=== PATIENT | male | born 1955 | race Caucasian/White ===

== ENCOUNTER 2020-09-21 07:55 | Outpatient (REF) | payer MEDICARE, SELFPAY ==
--- NOTE | 2020-09-21 08:02 | XR_ITS ---
EXAMINATION: XR CERVICAL SPINE CLINICAL INFORMATION: Cervical spondylosis, follow-up. COMPARISON: Cervical spine MRI dated 05/30/2012 cervical spine radiographs dated 07/18/2009. TECHNIQUE: 6 views of the cervical spine, inclusive of flexion and extension views, were obtained. FINDINGS: At C3-4 there is moderate degenerative disc disease and grade 1 anterolisthesis with approximate 3 mm displacement. Mild grade 1 retrolisthesis is also seen at C5-6 with 2 mm displacement. Mild bilateral neural foraminal narrowing is seen at both of these levels, left greater than right. The vertebral bodies are intact. Facet joints are unremarkable. The odontoid process is intact. The atlantoaxial joints are unremarkable. A dental prosthesis overlies this region. XR/XR cervical spine min 6V IMPRESSION: 1. C3-4 moderate degenerative disc disease, grade 1 retrolisthesis and mild bilateral neural foraminal narrowing represents interval increase from previous studies. 2. C5-6 mild grade 1 retrolisthesis and mild neural foraminal narrowing represents interval increase from the previous study.
== END 2020-09-21 07:56 | disposition home or self-care (01) ==
LOC: HO.XRAY 07:55
PROVIDERS: PCP Internal Medicine; Visit Provider Psychiatry & Neurology Neurology
DX: M47.812 Spondylosis without myelopathy or radiculopathy, cervical region (principal)
CPT/HCPCS: 72052

== ENCOUNTER 2022-01-08 08:25 | Outpatient (REF) | payer MEDICARE, SELFPAY ==
[2022-01-08 08:37] LABS: MANUAL DIFF FLAG NO
[2022-01-08 09:20] LABS: Basophils Absolute Auto 0.1 X10*3/uL (0.0-0.2); Basophils Percent Auto 0.8 % (0-2); Eosinophils Absolute Auto 0.1 X10*3/uL (0.0-0.4); Eosinophils Percent Auto 1.7 % (0-4); Hematocrit 46.6 % (42.0-52.0); Hemoglobin 15.7 g/dl (14.0-18.0); Imm Gran Abs Auto 0.02 X10*3/uL (0.00-0.03); Imm Gran Pct Auto 0.3 % (0.0-0.4); Lymphocytes Absolute Auto 1.8 X10*3/uL (1.2-4.9); Lymphocytes Percent Auto 28.1 % (20-40); Mean Corpuscular HGB Conc 33.7 g/dl (31.0-36.0); Mean Corpuscular Hemoglobin 30.5 pg (27.0-33.0); Mean Corpuscular Volume 90.5 fL (80.0-98.0); Mean Platelet Volume 9.3 fL (9.4-12.4); Monocytes Absolute Auto 0.4 X10*3/uL (0.1-1.2); Monocytes Percent Auto 6.7 % (2-11); Neutrophils Absolute Auto 3.9 x10*3/uL (2.0-8.3); Neutrophils Percent Auto 62.4 % (45-73); Platelet Count 200 X10*3/uL (160-400); Red Blood Count 5.15 X10*6/uL (4.60-5.80); Red Cell Distribution Width 13.2 % (11.0-16.0); White Blood Count 6.3 X10*3/uL (4.8-10.8)
[2022-01-08 09:44] LABS: Alanine Aminotransferase 21 U/L (0-40); Albumin Level 4.1 g/dL (3.5-5.0); Alkaline Phosphatase 97 U/L (39-117); Anion Gap 12 (12-20); Aspartate Amino Transferase 22 U/L (5-37); Bilirubin Total 1.3 mg/dL (0.0-1.0); Blood Urea Nitrogen 7 mg/dL (9-16); Calcium 9.2 mg/dL (8.4-10.2); Carbon Dioxide 25 mmol/L (22-29); Chloride 108 mmol/L (96-108); Cholesterol 200 mg/dL; Estimated Glomerular Filt Rate > 60; Glucose Random 83 mg/dL (60-115); HDL Cholesterol 40 mg/dL; LDL Cholesterol Calculated 130 mg/dl; Potassium 4.5 mmol/L (3.3-5.1); Sodium 140 mmol/L (135-145); Total Protein 6.3 g/dL (6.5-8.0); Triglycerides 152 mg/dL
[2022-01-08 10:07] LABS: Free T4 (Free Thyroxine) 0.79 ng/dL (0.71-1.85); Prostate Specific Antigen Scr 2.27 ng/mL (<0.05-4.0); Thyroid Stimulating Hormone 1.34 uIU/mL (0.32-4.0)
[2022-01-08 10:44] LABS: Folate 8.5 ng/mL (> or = 4.0); Vitamin B12 407 pg/mL (200-900)
== END 2022-01-08 08:26 | disposition home or self-care (01) ==
LOC: HO.LAB 08:25
PROVIDERS: PCP Internal Medicine; Visit Provider Internal Medicine
DX: E78.00 Pure hypercholesterolemia, unspecified (principal); Z12.5 Encounter for screening for malignant neoplasm of prostate
CPT/HCPCS: 36415; 80053; 80061; 82607; 82746; 84153; 84439; 84443; 85025

== ENCOUNTER 2022-07-02 10:32 | Day surgery (SDC) | payer MEDICARE, SELFPAY ==
[2022-06-25 15:27] VITALS: BMI 23.7
[2022-07-02 10:43] VITALS: BP 125/76; PULSE 62; RESP 16; TEMP 36.7; O2SAT 97
[2022-07-02] MEDS: Lactated Ringers 1,000 ML 50 ML IVCONT (11:00)
--- NOTE | 2022-07-02 11:51 | P.CONAN_ITS ---
HPI - Anesthesia Eval Consult details Narrative: 66 yo male patient for colonoscopy PMFSH Active Problems Active Problems: All Active Problems (Updated 06/25/22 @ 15:25 by Marie Ayoub RN) Annual physical exam (Acute) Colon cancer screening (Acute) Cervical spinal stenosis (Acute) Hypercholesterolemia (Acute) GERD (gastroesophageal reflux disease) (Acute) Past Medical History Medical History Cataract Cervical spinal stenosis GERD (gastroesophageal reflux disease) Hypercholesterolemia Recurrent major depression Vitamin D deficiency Family History Family History (Updated 07/12/21 @ 08:59 by Dilcia Antony) Father Stroke CVD (cardiovascular disease) Mother No problems noted. Paternal Grandfather Heart problem Paternal Grandmother No problems noted. Family history of problems with anesthesia: No Surgical History Surgical History H/O colonoscopy History of cataract surgery History of facial surgery S/P debridement History of Problems with Anesthesia: No Social History Social History (Updated 07/02/22 @ 12:56 by Darlyn Liu MD) Housing: House Patient Tobacco Use Status: Former Tobacco user Quit Date: 30 yrs ago Years Smoked: quit 1979 e-Cigarette/Vaping Use: Never Used Second Hand Smoke Exposure: No Use of substances other than those prescribed or required for medical reasons: Yes Substance Use Type: Marijuana Substance Use Frequency: Daily Are you DNR?: No Advance Directives: No Advance Directives Information Provided: Yes service: No Current occupational status: retired and disabled Current occupation: [employer] Meds Allergies Allergy/AdvReac Type Severity Reaction Status Date / Time No Known Allergies Allergy Verified 07/02/22 10:40 [No Known Allergies*] Active Medications: Current Medications Lactated Ringer's (Lr) 1,000 mls @ 50 mls/hr IVCONT .Q20H LEO Last Admin: 07/02/22 11:00 Dose: 50 mls/hr Sodium Biphosphate/Sodium Phosphate (Sodium Phosphate,[place]-Dibasic 133 Ml Enema) 133 ml MA ONCE PRN PRN Reason: Poor Colonoscopy Prep Results Home Medications Medication Instructions Recorded Confirmed Last Taken Type aspirin 81 mg tablet,delayed 81 mg PO DAILY 07/12/21 06/25/22 Unknown History release cholecalciferol (vitamin D3) 25 25 mcg PO DAILY 07/12/21 06/25/22 Unknown History mcg (1,000 unit) capsule meloxicam 15 mg tablet 15 mg PO DAILY PRN Pain 07/02/22 07/02/22 06/18/22 History Exam Exam Date and Time: July 02, 2022 1151 Height,Weight and Vital Signs: Height 5 ft 8 in Weight 70.76 kg Last Vital Signs Temp 98.1 F 07/02/22 10:43 Pulse 62 07/02/22 10:43 Resp 16 07/02/22 10:43 BP 125/76 07/02/22 10:43 Pulse Ox 97 07/02/22 10:43 O2 Del Method 07/02/22 10:43 Airway Mallampati Class: II TM Dist: >3cm Neck ROM: Full Partial: Upper and Lower Heart: RRR Lungs: CTAB Assessment and Plan Assessment Anesthesia Assessment: Anesthesia Plan Discussed and Chart Reviewed Final Anesthetic Review Family History of Problems with Anesthesia: No History of Problems with Anesthesia: No ASA Class: II Final Preanesthetic Review: No Changes in Pt Med Stat, Meds/Allgs Chart Reviewed, Consent Obtained/Reviewed and Anes Risks/Benef Reviewed Patient Risk: Intermediate Procedure Risk: Low Assessment/Block/Sedation in SS: Assess/Block/Sedation-SS Anesthetic Plan Anesthetic Plan: MAC: Disposition: Standard PACU
[2022-07-02 12:35] VITALS: BP 100/58; PULSE 103; RESP 18; TEMP 36.7; O2SAT 96
--- NOTE | 2022-07-02 12:40 | PM.OP ---
Brief Operative Note Date of Service: 07/02/22 Pre-op diagnosis: Screening Post-op diagnosis: other (Polyp, Limited prep) Procedure: Colonoscopy to the cecum and TI with biopsy and removal of polyp Surgeon: Jeffery Castaneda Anesthesia: MAC Was an Maintenance Trainer used for this Procedure?: No Estimated blood loss (mL): 2.0 Pathology: other (A. Polyp at 60cm) Condition: stable Disposition: PACU
[2022-07-02 12:50] VITALS: BP 97/53; PULSE 61; RESP 18; TEMP 36.7; O2SAT 99
--- NOTE | 2022-07-03 00:42 | OP_ITS ---
SURGEON: Jeffery Castaneda MD INDICATIONS: The patient presents for evaluation of colorectal cancer screening. Full consent obtained from him for this, including risks of bleeding and perforation. PREOPERATIVE DIAGNOSIS: Colorectal cancer screening. POSTOPERATIVE DIAGNOSIS: Colorectal cancer screening, small colon polyp, limited bowel prep particularly in the left colon, diverticulosis and internal hemorrhoids. PROCEDURE PERFORMED: Colonoscopy to cecum and terminal ileum with biopsy and removal of polyp. ESTIMATED BLOOD LOSS: COMPLICATIONS: ANESTHESIA: ASSISTANTS: SPECIMENS: PREOPERATIVE MEDICATION USED: Monitored anesthesia care. DESCRIPTION OF PROCEDURE: The patient was placed in the left lateral decubitus position. The digital rectal exam revealed no abnormalities. The Olympus video pediatric colonoscope was entered into the rectum and advanced easily to the cecum. Once in the cecum, I did identify cecal pouch with appendiceal orifice and a normal-appearing ileocecal valve. The terminal ileum was cannulated and appeared normal. The scope withdrawn back in the colon. The entire cecum was well visualized, although there was some fine layering of liquid stool, which was washed away and suctioned away as best as possible. The cecum appeared normal. The scope was then slowly withdrawn assessing all mucosal surfaces carefully. Preparation of the ascending and transverse colon also had some fine coating of stool, which was also easily washed away. The descending and sigmoid colon on the other hand had more solid stool, which definitely limited the visualization. I did visualize a small less than 5 mm polyp at 60 cm, which was biopsied and completely removed with cold biopsy forceps. I did not visualize any other polyps, colitis, or angiodysplasia. There was some diverticulosis in the sigmoid colon. Again visualization of the descending and sigmoid colon was quite limited due to solid stool. In the rectum, scope was retroflexed visualizing internal hemorrhoids, but no other pathology. The scope was straightened and withdrawn from the patient. He tolerated procedure well and was returned to recovery area in stable condition. IMPRESSION: 1. Small colon polyp, status post biopsy removal. 2. Limited bowel prep particularly in the left colon. 3. Diverticulosis. 4. Internal hemorrhoids. PLAN: The results of biopsy will be checked. Given the limited colonoscopy, I would recommend a repeat colonoscopy within the year with a 2-day preparation for better inspection, particularly the left colon. I shall review this with him. If he refuses that, then the other option would be to do at least a Cologuard test at home. He was advised not to use any aspirin or NSAIDs for 1 more week. This has been discussed with his sister. MD HENRY Sapp/MARGARET / [phone]
== END 2022-07-02 13:30 | disposition home or self-care (01) ==
PROVIDERS: Visit Provider Internal Medicine
PROC: 0DJD8ZZ Inspection of Lower Intestinal Tract, Via Natural or Artificial Opening Endoscopic (ICD-10-PCS; CPT 45378; principal; 2022-07-02 11:30)
DX: Z12.11 Encounter for screening for malignant neoplasm of colon (principal); K63.5 Polyp of colon; K57.30 Diverticulosis of large intestine without perforation or abscess without bleeding; K64.8 Other hemorrhoids; K21.9 Gastro-esophageal reflux disease without esophagitis; E78.00 Pure hypercholesterolemia, unspecified; Z79.82 Long term (current) use of aspirin; Z79.899 Other long term (current) drug therapy; Z87.891 Personal history of nicotine dependence
CPT/HCPCS: 45380; 88305; J2250; J2765

== ENCOUNTER 2022-09-24 10:11 | Day surgery (SDC) | payer MEDICARE, SELFPAY ==
--- NOTE | 2022-09-21 13:53 | HO.ANESPROP2 ---
Documented by User: Binta Cook NP 09/21/22 13:53 HPI - Anesthesia Eval Consult details Narrative: 67yo M for Colonoscopy PMFSH Active Problems Active Problems: All Active Problems (Updated 06/25/22 @ 15:25 by Marie Ayoub RN) Annual physical exam (Acute) Colon cancer screening (Acute) Cervical spinal stenosis (Acute) Hypercholesterolemia (Acute) GERD (gastroesophageal reflux disease) (Acute) Past Medical History Medical History Cataract Cervical spinal stenosis GERD (gastroesophageal reflux disease) Hypercholesterolemia Recurrent major depression Vitamin D deficiency Family History Family History (Updated 07/12/21 @ 08:59 by Dilcia Antony) Father Stroke CVD (cardiovascular disease) Mother No problems noted. Paternal Grandfather Heart problem Paternal Grandmother No problems noted. Family history of problems with anesthesia: No Surgical History Surgical History H/O colonoscopy History of cataract surgery History of facial surgery S/P debridement History of Problems with Anesthesia: No Social History Social History (Updated 07/02/22 @ 12:56 by Darlyn Liu MD) Housing: House Patient Tobacco Use Status: Former Tobacco user Quit Date: 30 years ago Years Smoked: quit 1979 e-Cigarette/Vaping Use: Never Used Second Hand Smoke Exposure: No Use of substances other than those prescribed or required for medical reasons: Yes Substance Use Type: Marijuana Substance Use Type Other:: daily Are you DNR?: No Advance Directives: No Advance Directives Information Provided: Yes Recently lost weight without trying: No service: No Current occupational status: retired and disabled Current occupation: [employer] Meds Allergies Allergy/AdvReac Type Severity Reaction Status Date / Time No Known Allergies Allergy Verified 07/02/22 10:40 [No Known Allergies*] Home Medications Medication Instructions Recorded Confirmed Last Taken Type aspirin 81 mg tablet,delayed 81 mg PO DAILY 07/12/21 07/02/22 07/01/22 History release cholecalciferol (vitamin D3) 25 25 mcg PO DAILY 07/12/21 07/02/22 Unknown History mcg (1,000 unit) capsule meloxicam 15 mg tablet 15 mg PO DAILY PRN Pain 07/02/22 07/02/22 09/21/22 History Exam Exam Date and Time: September 21, 2022 4693 Assessment and Plan Assessment Anesthesia Assessment: Chart Reviewed Final Anesthetic Review Family History of Problems with Anesthesia: No History of Problems with Anesthesia: No Documented by User: Vishal Loyd MD 09/24/22 10:44 [facility] Past Medical History Medical History Cataract Cervical spinal stenosis GERD (gastroesophageal reflux disease) Hypercholesterolemia Recurrent major depression Vitamin D deficiency Family History Family History (Updated 07/12/21 @ 08:59 by Dilcia Antony) Father Stroke CVD (cardiovascular disease) Mother No problems noted. Paternal Grandfather Heart problem Paternal Grandmother No problems noted. Surgical History Surgical History H/O colonoscopy History of cataract surgery History of facial surgery S/P debridement Social History Social History (Updated 07/02/22 @ 12:56 by Darlyn Liu MD) Housing: House Patient Tobacco Use Status: Former Tobacco user Quit Date: 30 years ago Years Smoked: quit 1979 e-Cigarette/Vaping Use: Never Used Second Hand Smoke Exposure: No Use of substances other than those prescribed or required for medical reasons: Yes Substance Use Type: Marijuana Substance Use Type Other:: daily Are you DNR?: No Advance Directives: No Advance Directives Information Provided: Yes Recently lost weight without trying: No service: No Current occupational status: retired and disabled Current occupation: [employer] Meds Allergies Allergy/AdvReac Type Severity Reaction Status Date / Time No Known Allergies Allergy Verified 07/02/22 10:40 [No Known Allergies*] Home Medications Medication Instructions Recorded Confirmed Last Taken Type aspirin 81 mg tablet,delayed 81 mg PO DAILY 07/12/21 07/02/22 07/01/22 History release cholecalciferol (vitamin D3) 25 25 mcg PO DAILY 07/12/21 07/02/22 Unknown History mcg (1,000 unit) capsule meloxicam 15 mg tablet 15 mg PO DAILY PRN Pain 07/02/22 07/02/22 09/21/22 History Exam Airway Mallampati Class: II TM Dist: >3cm Neck ROM: Full Assessment and Plan Assessment Anesthesia Assessment: Anesthesia Plan Discussed Final Anesthetic Review NPO: Yes ASA Class: II Final Preanesthetic Review: No Changes in Pt Med Stat, Meds/Allgs Chart Reviewed, Consent Obtained/Reviewed and Anes Risks/Benef Reviewed Patient Risk: Low Procedure Risk: Low Anesthetic Plan Anesthetic Plan: MAC: Disposition: Standard PACU
[2022-09-24 10:25] VITALS: BP 112/60; PULSE 68; RESP 18; TEMP 36.6; O2SAT 97; BMI 24.3
[2022-09-24] MEDS: Lactated Ringers 1,000 ML 100 ML IVCONT (10:44)
[2022-09-24] MEDS: Sodium Phosphate,Mono-Dibasic 133 ML ENEMA PR (10:53)
--- NOTE | 2022-09-24 11:03 | PC.NURSE ---
scooby enema, per dr. bowens for previous poor prep. pt had 1 day prep he states per instructions.
[2022-09-24 11:43] VITALS: BP 96/56; PULSE 80; RESP 16; TEMP 36.2; O2SAT 97
--- NOTE | 2022-09-24 11:49 | PM.OP ---
Brief Operative Note Date of Service: 09/24/22 Pre-op diagnosis: Screening Post-op diagnosis: other (Diverticulosis) Procedure: Colonoscopy to the cecum and TI Surgeon: Jeffery Castaneda Anesthesia: MAC Was an Industrial Ecology Technician used for this Procedure?: No Estimated blood loss (mL): 0 Pathology: none sent Condition: stable Disposition: PACU
[2022-09-24 11:58] VITALS: BP 99/58; PULSE 63; RESP 16; O2SAT 97
[2022-09-24 12:13] VITALS: BP 103/67; PULSE 55; RESP 16; TEMP 36.2; O2SAT 97
--- NOTE | 2022-09-24 22:46 | OP_ITS ---
SURGEON: Jeffery Castaneda MD INDICATIONS: The patient presents for evaluation of colorectal cancer screening, history of a colon polyp, and a recent suboptimal colonoscopy due to a poor prep. Full consent has been obtained from him for this, including risks of bleeding and perforation. PREOPERATIVE DIAGNOSIS: POSTOPERATIVE DIAGNOSIS: PROCEDURE PERFORMED: Colonoscopy to cecum and terminal ileum. ESTIMATED BLOOD LOSS: COMPLICATIONS: ANESTHESIA: Monitored anesthesia care. ASSISTANTS: SPECIMENS: PREOPERATIVE DIAGNOSES: Colorectal cancer screening, history of colon polyp. POSTOPERATIVE DIAGNOSES: Colorectal cancer screening, history of colon polyp, diverticulosis, and internal hemorrhoids. DESCRIPTION OF PROCEDURE: The patient was placed in the left lateral decubitus position. The digital rectal exam revealed no abnormalities. The Olympus video pediatric colonoscope was entered into the rectum and advanced easily to the cecum. Once in the cecum, I did identify normal-appearing cecal pouch with appendiceal orifice and a normal-appearing ileocecal valve. The terminal ileum was cannulated and appeared normal. Scope was withdrawn back into the colon. The entire cecum was well visualized after irrigation and suctioning. There was no sign of any inflammation nor mass. The scope was then slowly withdrawn assessing all mucosal surfaces carefully. For the most part, preparation was very good throughout the colon and obviously much better than his colonoscopy from earlier in the year. There were still some areas of liquid stool, which had to be suctioned and irrigated. I did not visualize any sign of polyps, colitis, nor angiodysplasia. There was a mild amount of sigmoid diverticulosis. In the rectum, scope was retroflexed visualizing internal hemorrhoids, but no other pathology. The rectal mucosa appeared normal. The scope was straightened out and withdrawn from the patient. He tolerated the procedure well and was returned to the recovery area in stable condition. IMPRESSION: 1. Diverticulosis. 2. Internal hemorrhoids. PLAN: I would recommend a repeat colonoscopy in 7 years rather than 10 given the somewhat limited prep, although overall the prep was very good today. He will otherwise see me on a p.r.n. basis. MD HENRY Sapp/MARGARET / [id number] MTDTori
== END 2022-09-24 12:50 | disposition home or self-care (01) ==
PROVIDERS: Visit Provider Internal Medicine
PROC: 0DJD8ZZ Inspection of Lower Intestinal Tract, Via Natural or Artificial Opening Endoscopic (ICD-10-PCS; CPT 45378; principal; 2022-09-24 11:20)
DX: Z12.11 Encounter for screening for malignant neoplasm of colon (principal); K57.30 Diverticulosis of large intestine without perforation or abscess without bleeding; K64.8 Other hemorrhoids; E78.00 Pure hypercholesterolemia, unspecified; Z79.82 Long term (current) use of aspirin; Z79.899 Other long term (current) drug therapy; Z87.891 Personal history of nicotine dependence; F12.90 Cannabis use, unspecified, uncomplicated
CPT/HCPCS: G0121

== ENCOUNTER 2023-05-01 07:11 | Outpatient (REF) | payer OTHER, SELFPAY ==
[2023-05-01 07:19] LABS: MANUAL DIFF FLAG NO
[2023-05-01 07:25] LABS: Basophils Percent Auto 0.6 % (0-2); Eosinophils Absolute Auto 0.1 X10*3/uL (0.0-0.4); Eosinophils Percent Auto 1.4 % (0-4); Hematocrit 44.5 % (42.0-52.0); Hemoglobin 15.2 g/dl (14.0-18.0); Imm Gran Abs Auto 0.01 X10*3/uL (0.00-0.03); Imm Gran Pct Auto 0.1 % (0.0-0.4); Lymphocytes Absolute Auto 1.6 X10*3/uL (1.2-4.9); Lymphocytes Percent Auto 22.8 % (20-40); Mean Corpuscular HGB Conc 34.2 g/dl (31.0-36.0); Mean Corpuscular Hemoglobin 30.8 pg (27.0-33.0); Mean Corpuscular Volume 90.3 fL (80.0-98.0); Mean Platelet Volume 9.3 fL (9.4-12.4); Monocytes Absolute Auto 0.5 X10*3/uL (0.1-1.2); Monocytes Percent Auto 7.4 % (2-11); Neutrophils Absolute Auto 4.7 x10*3/uL (2.0-8.3); Neutrophils Percent Auto 67.7 % (45-73); Platelet Count 200 X10*3/uL (160-400); Red Blood Count 4.93 X10*6/uL (4.60-5.80); Red Cell Distribution Width 13.5 % (11.0-16.0)
[2023-05-01 08:06] LABS: Alanine Aminotransferase 19 U/L (0-40); Albumin Level 3.9 g/dL (3.5-5.0); Alkaline Phosphatase 103 U/L (39-117); Anion Gap 11 (12-20); Aspartate Amino Transferase 21 U/L (5-37); Bilirubin Total 0.7 mg/dL (0.0-1.0); Blood Urea Nitrogen 8 mg/dL (9-16); Calcium 9.3 mg/dL (8.4-10.2); Carbon Dioxide 24 mmol/L (22-29); Chloride 113 mmol/L (96-108); Cholesterol 193 mg/dL; Estimated Glomerular Filt Rate > 60; Glucose Random 95 mg/dL (60-115); HDL Cholesterol 34 mg/dL; LDL Cholesterol Calculated 136 mg/dl; Potassium 4.2 mmol/L (3.3-5.1); Sodium 144 mmol/L (135-145); Total Protein 6.4 g/dL (6.5-8.0); Triglycerides 119 mg/dL
[2023-05-01 08:26] LABS: Thyroid Stimulating Hormone 1.61 uIU/mL (0.32-4.0)
[2023-05-01 08:33] LABS: Folate 7.7 ng/mL (> or = 4.0); Vitamin B12 289 pg/mL (200-900)
== END 2023-05-01 07:12 | disposition home or self-care (01) ==
LOC: HO.LAB 07:11
PROVIDERS: PCP Internal Medicine; Visit Provider Internal Medicine
DX: Z12.5 Encounter for screening for malignant neoplasm of prostate (principal); E78.00 Pure hypercholesterolemia, unspecified
CPT/HCPCS: 36415; 80053; 80061; 82607; 82746; 84153; 84439; 84443; 85025

== ENCOUNTER 2023-05-16 08:32 | Outpatient (AMB) | payer OTHER, SELFPAY ==
[2023-05-16 08:35] VITALS: BP 122/70; PULSE 67; O2SAT 97; BMI 23.9
--- NOTE | 2023-05-16 08:35 | MHC.PC.OV ---
Vital Signs 05/16/23 08:35 Height 5 ft 8 in Weight 157 lb BMI 23.9 BP 122/70 Blood Pressure Location Lt brachial Position Sitting Pulse 67 Pulse Source Pulse Oximeter Pulse Oximetry (%) 97 Oxygen Delivery Method Room Air Intake Visit Reasons: Cholesterol, lump on left arm Allergies No Known Allergies [No Known Allergies*] Allergy (Verified 05/16/23 08:36) Tobacco use date assessed: 11/16/22 Fall risk assessment: No Falls in past year Last assessed Fall Risk: 05/16/23 Dental Screening Dental Screen Date: 05/16/23 Did you have a dental visit in the last 12 months?: No Did you have a dental problem in the last 6 months where you did not have access to dental care?: No Was dental information given to patient?: No HPI Cholesterol HPI Details 67-year-old male with a history of hypercholesterolemia GERD cervical spinal stenosis last seen in November 2022 for physical blood work was requested is here for follow-up. Patient has been doing fine otherwise no nausea no vomiting no chest pains no shortness of breath no bowel bladder symptoms. Left arm showed me 1 cm mid arm mass nontender no redness soft PFSH Medical History (Updated 05/16/23 @ 08:45 by Patti Faulkner MD) Cataract Cervical spinal stenosis GERD (gastroesophageal reflux disease) Hypercholesterolemia Recurrent major depression Vitamin D deficiency Surgical History H/O colonoscopy History of cataract surgery History of facial surgery S/P debridement Family History (Updated 07/12/21 @ 08:59 by Dilcia Antony) Father Stroke CVD (cardiovascular disease) Mother No problems noted. Paternal Grandfather Heart problem Paternal Grandmother No problems noted. Social History (Updated 11/16/22 @ 17:07 by Patti Faulkner MD) Housing: House Alcohol intake: never Patient Tobacco Use Status: Former Tobacco user Quit Date: 30 years ago Tobacco use type: Cigarette Years Smoked: quit 1979 e-Cigarette/Vaping Use: Never Used Second Hand Smoke Exposure: No Substance Use Type: Marijuana service: No Current occupational status: retired and disabled Current occupation: [employer] Cognitive needs: No Hearing needs: No Vision needs: Yes Questionnaire PHQ-9 Over the last 2 weeks, how often have you been bothered by any of the following problems? 1. Little interest or pleasure in doing things: not at all 2. Feeling down, depressed, or hopeless: not at all 3. Trouble falling or staying asleep, or sleeping too much: not at all 4. Feeling tired or having little energy: not at all 5. Poor appetite or overeating: not at all 6. Feeling bad about yourself - or that you are a failure or have let yourself or your family down: not at all 7. Trouble concentrating on things, such as reading the newspaper or watching television: not at all 8. Moving or speaking so slowly that other people could have noticed. Or the opposite - being so fidgety or restless that you have been moving around a lot more than usual: not at all 9. Thoughts that you would be better off or of hurting yourself in some way: not at all Total score: 0 Depression Screening Interpretation: Negative Source: Developed by Drs. Jeffery Sullivan, Melita Corrales, Mervin Tran and colleagues, with an educational pavel from [email or web address]. Thrive Questionnaire Date Thrive assessed: 11/16/22 AUDIT C Alcohol Use Questionnaire (AUDIT-C) 1. How often do you have a drink containing alcohol?: Never 3. How often do you have six or more drinks on one occasion?: Never Total Score: 0 KVNG-7 AMB Questionnaire KVNG-7 Date KVNG - 7 assessed: 11/16/22 Source: Developed by Drs. Jeffery Sullivan, Melita Corrales, Mervin Tran and colleagues, with an educational pavel from [email or web address]. Physical exam (Primary Care) Vital Signs: Last Vital Signs Pulse 67 05/16/23 08:35 BP 122/70 05/16/23 08:35 Pulse Ox 97 05/16/23 08:35 Oxygen Delivery Method Room Air 05/16/23 08:35 Care Plan Goal for BP management: 1 cm rounded mass soft nontender no redness left mid arm this is lipoma and reassurance BMI result Body Mass Index 23.9 Tobacco/Smoking Status: Tobacco use Status Tobacco use date assessed 11/16/22 05/16/23 08:39 Patient Tobacco Use Status Former Tobacco user 05/16/23 08:39 Tobacco use type Cigarette 05/16/23 08:39 e-Cigarette/Vaping Use Never Used 05/16/23 08:39 PHQ-9: PHQ-9 Score PHQ-9: Total score 0 05/16/23 08:39 Depression Screening Interpretation: Negative Thrive Assessment: Date of Thrive Assessment Date Thrive assessed 11/16/22 05/16/23 08:39 Const General: alert; No acute distress Eyes Conjunctivae: conjunctivae normal Resp Auscultation: clear to auscultation bilaterally Cardio Rate: regular rate Rhythm: regular rhythm GI Inspection: Yes normal to inspection Extrem General: Yes normal to inspection and No edema Assessment and Plan Assessment & Plan (1) Hypercholesterolemia: Code(s): E78.00 - Pure hypercholesterolemia, unspecified Plan: Avoid fried foods, chicken skin, eggs, butter margarine, pastries and meat. Be it pork or beef they have a lot of cholesterol LDL goal of less than 130 and triglyceride of less than 150 last about the cholesterol being elevated option of changing medication or changing his diet. Will hold off from medication changes for now. (2) GERD (gastroesophageal reflux disease): Code(s): K21.9 - Gastro-esophageal reflux disease without esophagitis Plan: Avoid the foods that causes that usually spicy foods, tomato products, juices, coffee, soda and foods that your sensitive to. After eating do not lie down, allow 3-4 hours before in lie down. And keep the head of bed above 30 degrees to avoid the acid from going up. (3) Low vitamin B12 level: Code(s): E53.8 - Deficiency of other specified B group vitamins Plan: Vitamin B12 1000 mcg once a day Orders: Orders Vitamin B12 and Folate 6 Months E78.00 - Pure hypercholesterolemia, unspecified Comprehensive Met. Panel 6 Months E78.00 - Pure hypercholesterolemia, unspecified Lipid Panel 6 Months E78.00 - Pure hypercholesterolemia, unspecified Prostate Specific Antigen Scr 6 Months E78.00 - Pure hypercholesterolemia, unspecified Free T4 (Free Thyroxine) 6 Months E78.00 - Pure hypercholesterolemia, unspecified Thyroid Stimulating Hormone 6 Months E78.00 - Pure hypercholesterolemia, unspecified Complete Blood Count Auto Diff 6 Months E78.00 - Pure hypercholesterolemia, unspecified Coding Level of Care Code Est Pt Level 4 (22555) Diagnoses Hypercholesterolemia E78.00 GERD (gastroesophageal reflux disease) K21.9 Low vitamin B12 level E53.8
== END 2023-05-16 08:56 | disposition home or self-care (01) ==
PROVIDERS: PCP Internal Medicine; Visit Provider Internal Medicine
DX: E78.00 Pure hypercholesterolemia, unspecified (principal); K21.9 Gastro-esophageal reflux disease without esophagitis; E53.8 Deficiency of other specified B group vitamins
CPT/HCPCS: 99214

== ENCOUNTER 2023-11-05 07:57 | Outpatient (REF) | payer OTHER, SELFPAY ==
[2023-11-05 08:18] LABS: MANUAL DIFF FLAG NO
[2023-11-05 08:37] LABS: Basophils Percent Auto 0.7 % (0-2); Eosinophils Absolute Auto 0.1 X10*3/uL (0.0-0.4); Eosinophils Percent Auto 1.6 % (0-4); Hematocrit 45.6 % (42.0-52.0); Hemoglobin 15.9 g/dl (14.0-18.0); Lymphocytes Absolute Auto 1.7 X10*3/uL (1.2-4.9); Lymphocytes Percent Auto 29.8 % (20-40); Mean Corpuscular HGB Conc 34.9 g/dl (31.0-36.0); Mean Corpuscular Hemoglobin 30.8 pg (27.0-33.0); Mean Corpuscular Volume 88.2 fL (80.0-98.0); Mean Platelet Volume 9.5 fL (9.4-12.4); Monocytes Absolute Auto 0.5 X10*3/uL (0.1-1.2); Monocytes Percent Auto 7.9 % (2-11); Neutrophils Absolute Auto 3.4 x10*3/uL (2.0-8.3); Platelet Count 198 X10*3/uL (160-400); Red Blood Count 5.17 X10*6/uL (4.60-5.80); Red Cell Distribution Width 13.5 % (11.0-16.0); White Blood Count 5.7 X10*3/uL (4.8-10.8)
[2023-11-05 09:08] LABS: Alanine Aminotransferase 20 U/L (0-40); Albumin Level 4.3 g/dL (3.5-5.0); Alkaline Phosphatase 135 U/L (39-117); Anion Gap 13 (12-20); Aspartate Amino Transferase 21 U/L (5-37); Bilirubin Total 0.7 mg/dL (0.0-1.0); Blood Urea Nitrogen 8 mg/dL (9-16); Calcium 9.1 mg/dL (8.4-10.2); Carbon Dioxide 26 mmol/L (22-29); Chloride 108 mmol/L (96-108); Cholesterol 199 mg/dL (<200); Estimated Glomerular Filt Rate > 60; Glucose Random 92 mg/dL (60-115); HDL Cholesterol 36 mg/dL (>40); LDL Cholesterol Calculated 139 mg/dL (<100); Potassium 4.2 mmol/L (3.3-5.1); Sodium 143 mmol/L (135-145); Total Protein 6.8 g/dL (6.5-8.0); Triglycerides 120 mg/dL (<150)
[2023-11-05 09:24] LABS: Free T4 (Free Thyroxine) 0.74 ng/dL (0.71-1.85); Thyroid Stimulating Hormone 1.37 uIU/mL (0.32-4.0)
[2023-11-05 09:41] LABS: Folate 3.7 ng/mL (> or = 4.0); Prostate Specific Antigen Scr 3.07 ng/mL (<0.05-4.0); Vitamin B12 304 pg/mL (200-900)
== END 2023-11-05 07:58 | disposition home or self-care (01) ==
LOC: HO.LAB 07:57
PROVIDERS: PCP Internal Medicine; Visit Provider Internal Medicine
DX: E78.00 Pure hypercholesterolemia, unspecified (principal); Z12.5 Encounter for screening for malignant neoplasm of prostate
CPT/HCPCS: 36415; 80053; 80061; 82607; 82746; 84153; 84439; 84443; 85025

== ENCOUNTER 2023-11-18 11:16 | Outpatient (AMB) | payer OTHER, SELFPAY ==
[2023-11-18 11:17] VITALS: BP 112/84; PULSE 60; O2SAT 95; BMI 23.9
--- NOTE | 2023-11-18 11:17 | MHC.PC.OV ---
Vital Signs 11/18/23 11:17 Height 5 ft 8 in Weight 157 lb 0.8 oz BMI 23.9 BP 112/84 Blood Pressure Location Lt brachial Position Sitting Pulse 60 Pulse Source Pulse Oximeter Temp Source Skin Pulse Oximetry (%) 95 Oxygen Delivery Method Room Air Intake Visit Reasons: pe Intake Note: Patient is here today for a physical. 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 Allergies No Known Allergies [No Known Allergies*] Allergy (Verified 11/18/23 11:20) Medication List - Last Reconciled 11/18/23 by Patti Faulkner MD aspirin 81 mg PO DAILY atorvastatin 80 mg PO DAILY 90 days cholecalciferol (vitamin D3) 25 mcg PO DAILY folic acid 1 mg PO DAILY meloxicam 15 mg PO DAILY PRN Tobacco use date assessed: 11/18/23 Fall risk assessment: No Falls in past year Last assessed Fall Risk: 11/18/23 Dental Screening Dental Screen Date: 11/18/23 Did you have a dental visit in the last 12 months?: No Did you have a dental problem in the last 6 months where you did not have access to dental care?: No HPI pe HPI Details 68-year-old male with a history of hypercholesterolemia GERD last seen in May coming in for physical exam. Patient's colonoscopy is up-to-date September 2022 and was advised 7 years follow-up.. Patient tells me that 4 years ago had some pain in the right ear when he lies down and did have a CT scan done which revealed sphenoid sinusitis which was treated with antibiotics and nasal spray. Patient feels that way again and would like antibiotic treatment. Examination was negative did discuss about the problem. Antibiotic did send but discussed that if it persists we may need to get ENT involved. Did have COVID and flu vaccine done. Discussed about pneumonia shots in the pharmacy as well as RSV. Advised pneumonia shot later this year [facility] Medical History (Updated 11/18/23 @ 11:48 by Patti Faulkner MD) Recurrent major depression Cervical spinal stenosis Cataract Hypercholesterolemia GERD (gastroesophageal reflux disease) Vitamin D deficiency Surgical History H/O colonoscopy S/P debridement History of cataract surgery History of facial surgery Family History (Updated 07/12/21 @ 08:59 by Dilcia Antony) Father Stroke CVD (cardiovascular disease) Mother No problems noted. Paternal Grandfather Heart problem Paternal Grandmother No problems noted. Social History (Updated 11/18/23 @ 11:36 by Patti Faulkner MD) Housing: House Alcohol intake: never Patient Tobacco Use Status: Former Tobacco user Quit Date: 30 years ago Tobacco use type: Cigarette Years Smoked: quit 1979 smokes pot e-Cigarette/Vaping Use: Never Used Second Hand Smoke Exposure: No Substance Use Type: Marijuana service: No Current occupational status: retired and disabled Current occupation: [employer] Cognitive needs: No Hearing needs: No Vision needs: Yes Questionnaire PHQ-9 Over the last 2 weeks, how often have you been bothered by any of the following problems? 1. Little interest or pleasure in doing things: not at all 2. Feeling down, depressed, or hopeless: not at all 3. Trouble falling or staying asleep, or sleeping too much: not at all 4. Feeling tired or having little energy: not at all 5. Poor appetite or overeating: not at all 6. Feeling bad about yourself - or that you are a failure or have let yourself or your family down: not at all 7. Trouble concentrating on things, such as reading the newspaper or watching television: not at all 8. Moving or speaking so slowly that other people could have noticed. Or the opposite - being so fidgety or restless that you have been moving around a lot more than usual: not at all 9. Thoughts that you would be better off or of hurting yourself in some way: not at all Total score: 0 Depression Screening Interpretation: Negative Depression Screening Done: Yes Source: Developed by Drs. Jeffery Sullivan, Melita Corrales, Mervin Tran and colleagues, with an educational pavel from [employer] Thrive Questionnaire Date Thrive assessed: 11/18/23 I am a: Patient What is your living situation today?: I have a steady place to live Within the past 12 months, did the food you bought not last and you didn't have the money to get more?: Never true Within the past 12 months, did you worry whether your food would run out before you got money to buy more?: Never true Do you have trouble paying for medicines?: No Do you have trouble getting transportation to medical appointments?: No Do you have trouble paying your heating and electricity bill?: No Do you have trouble taking care of your child, family member or friend?: No Do you have trouble with day-to-day activities such as bathing, preparing meals, shopping, managing finances, etc.?: No Are you currently unemployed and looking for a job?: No Are you interested in more education?: No AUDIT C Alcohol Use Questionnaire (AUDIT-C) 1. How often do you have a drink containing alcohol?: Never 2. How many drinks containing alcohol do you have on a typical day when you are drinking?: 1 or 2 (0) 3. How often do you have six or more drinks on one occasion?: Never Total Score: 0 KVNG-7 AMB Questionnaire KVNG-7 Date KVNG - 7 assessed: 11/18/23 Feeling nervous, anxious, or on edge: 0 = Not at all Not being able to stop or control worryin = Not at all Worrying too much about different things: 0 = Not at all Trouble relaxin = Not at all Being so restless that it is hard to sit still: 0 = Not at all Becoming easily annoyed or irritable: 0 = Not at all Feeling afraid as if something awful might happen: 0 = Not at all Total KVNG-7 score (0-4 normal; 5-9 mild; 10-14 moderate; 15-21 severe): 0 Source: Developed by Drs. Jeffery Sullivan, Melita Corrales, Mervin Tran and colleagues, with an educational pavel from [employer]). Review of Systems Const Denies poor appetite and Denies weakness Eyes Denies no additional complaints ENT Reports Normal hearing present, Denies dizziness, Denies nasal congestion, Denies tinnitus and Denies sore throat Card Denies chest pain, Denies syncope, Denies rapid heart rate and Denies dyspnea Resp Denies cough and Denies dyspnea GI Denies change in stool character, Reports constipation, Denies diarrhea, Denies nausea and Denies vomiting Denies dysuria and Denies urinary frequency Neuro Reports Normal hearing present, Denies confusion, Denies dizziness, Denies syncope and Denies weakness Psych Denies confusion Physical exam (Primary Care) Vital Signs: Last Vital Signs Pulse 60 11/18/23 11:17 BP 112/84 11/18/23 11:17 Pulse Ox 95 11/18/23 11:17 Oxygen Delivery Method Room Air 11/18/23 11:17 BMI result Body Mass Index 23.9 Tobacco/Smoking Status: Tobacco use Status Tobacco use date assessed 11/18/23 11/18/23 11:19 Patient Tobacco Use Status Former Tobacco user 11/18/23 11:19 Tobacco use type Cigarette 11/18/23 11:19 e-Cigarette/Vaping Use Never Used 11/18/23 11:19 PHQ-9: PHQ-9 Score PHQ-9: Total score 0 11/18/23 11:19 Depression Screening Interpretation: Negative Thrive Assessment: Date of Thrive Assessment Date Thrive assessed 11/18/23 11/18/23 11:19 Const General: No confusion Orientation/consciousness: No confusion HENMT Head: Yes normocephalic Ears: external ears normal and TM's normal bilaterally Face and sinus: Yes normal facial exam Mouth: moist mucous membranes Throat: Yes tonsils normal Eyes Conjunctivae: conjunctivae normal Pupils: Equal, round and reactive pupils present and Pupil accommodation reflex normal Direct Ophthalmoscopy: normal light reflex Neck Neck: No lymphadenopathy Thyroid: Thyroid normal Chest Chest palpation & inspection: normal inspection of the chest Resp Effort & Inspection: normal respiratory effort and no audible wheezes Auscultation: clear to auscultation bilaterally, no crackles, no wheezes and lung sounds not diminished Cardio Rate: regular rate Rhythm: regular rhythm Peripheral pulses: radial pulses present and dorsalis pedis present GI Other: guaiac negative prostate N Palpation (GI): no masses Auscultation: normal bowel sounds and normoactive bowel sounds Other: mild erythematous rash on the L groin with scaliness Skin General skin exam: no rashes or lesions noted Rashes: no rashes Neuro General: No confusion Cranial nerves: Yes Equal, round and reactive pupils present and Yes Normal hearing present Cognition (Neuro): normal cognition Gait exam (Neuro): Normal gait present Motor exam (neuro): 5/5 motor strength present throughout Deep tendon reflexes (DTR's): Right brachioradialis reflex intensity grade: 2+, Left brachioradialis reflex intensity grade: 2+, Right patellar reflex intensity grade: 2+ and Left patellar reflex intensity grade: 2+ Extrem General: No edema Assessment and Plan Assessment & Plan (1) Annual physical exam: Code(s): Z00.00 - Encounter for general adult medical examination without abnormal findings (2) Folic acid deficiency: Code(s): E53.8 - Deficiency of other specified B group vitamins Plan: Patient is advised to take folic acid once a day (3) Hypercholesterolemia: Code(s): E78.00 - Pure hypercholesterolemia, unspecified Plan: Avoid fried foods, chicken skin, eggs, butter margarine, pastries and meat. Be it pork or beef they have a lot of cholesterol LDL goal of less than 130 and triglyceride of less than 150. Patient on atorvastatin 80 mg once a day (4) GERD (gastroesophageal reflux disease): Code(s): K21.9 - Gastro-esophageal reflux disease without esophagitis Plan: GERD plan (5) Sinus congestion: Code(s): R09.81 - Nasal congestion (6) Tinea cruris: Code(s): B35.6 - Tinea cruris Orders: Orders Comprehensive Met. Panel 6 Months E53.8 - Deficiency of other specified B group vitamins Lipid Panel 6 Months E78.00 - Pure hypercholesterolemia, unspecified Vitamin B12 and Folate 6 Months E53.8 - Deficiency of other specified B group vitamins Medications: New amoxicillin-pot clavulanate 500-125 mg (Augmentin) 1 tab PO BID 14 tabs 0RF R09.81 - Nasal congestion clotrimazole 1% 1 appl topical BID 4 weeks 45 grams 0RF B35.6 - Tinea cruris Refilled folic acid 1 mg PO DAILY 30 tabs 3RF B35.6 - Tinea cruris Coding Level of Care Code Est Pt Prev Care >65y(77172) Diagnoses Annual physical exam Z00.00 Folic acid deficiency E53.8 Hypercholesterolemia E78.00 GERD (gastroesophageal reflux disease) K21.9 Sinus congestion R09.81 Tinea cruris B35.6
== END 2023-11-18 11:56 | disposition home or self-care (01) ==
PROVIDERS: PCP Internal Medicine; Visit Provider Internal Medicine
DX: Z00.00 Encounter for general adult medical examination without abnormal findings (principal); E53.8 Deficiency of other specified B group vitamins; E78.00 Pure hypercholesterolemia, unspecified; K21.9 Gastro-esophageal reflux disease without esophagitis; R09.81 Nasal congestion; B35.6 Tinea cruris
CPT/HCPCS: 99397

== ENCOUNTER 2024-04-02 07:28 | Outpatient (REF) | payer OTHER, SELFPAY ==
[2024-04-02 08:21] LABS: Alanine Aminotransferase 20 U/L (0-40); Albumin Level 4.3 g/dL (3.5-5.0); Alkaline Phosphatase 106 U/L (39-117); Anion Gap 12 (12-20); Aspartate Amino Transferase 22 U/L (5-37); Bilirubin Total 0.8 mg/dL (0.0-1.0); Blood Urea Nitrogen 5 mg/dL (9-16); Calcium 8.9 mg/dL (8.4-10.2); Carbon Dioxide 24 mmol/L (22-29); Chloride 109 mmol/L (96-108); Cholesterol 216 mg/dL (<200); Estimated Glomerular Filt Rate > 60; Glucose Random 96 mg/dL (60-115); HDL Cholesterol 41 mg/dL (>40); LDL Cholesterol Calculated 146 mg/dL (<100); Sodium 141 mmol/L (135-145); Total Protein 6.8 g/dL (6.5-8.0); Triglycerides 148 mg/dL (<150)
[2024-04-02 08:55] LABS: Folate 16.4 ng/mL (> or = 4.0); Vitamin B12 1599 pg/mL (200-900)
== END 2024-04-02 07:29 | disposition home or self-care (01) ==
LOC: HO.LAB 07:28
PROVIDERS: PCP Internal Medicine; Visit Provider Internal Medicine
DX: E53.8 Deficiency of other specified B group vitamins (principal); E78.00 Pure hypercholesterolemia, unspecified
CPT/HCPCS: 36415; 80053; 80061; 82607; 82746

== ENCOUNTER 2024-05-18 14:28 | Outpatient (AMB) | payer OTHER, SELFPAY ==
--- NOTE | 2024-05-18 14:31 | MHC.PC.OV ---
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 Allergies No Known Allergies [No Known Allergies*] Allergy (Verified 05/18/24 14:32) Medication List - Last Reconciled 05/18/24 by Patti Faulkner MD amoxicillin-pot clavulanate 500-125 mg (Augmentin) 1 tab PO BID aspirin 81 mg PO DAILY atorvastatin 80 mg PO DAILY 90 days cholecalciferol (vitamin D3) 25 mcg PO DAILY clotrimazole 1% 1 appl topical BID 4 weeks folic acid 1 mg PO DAILY meloxicam 15 mg PO DAILY PRN Tobacco use date assessed: 11/18/23 Fall risk assessment: No Falls in past year Last assessed Fall Risk: 05/18/24 Dental Screening Dental Screen Date: 11/18/23 HPI cholesterol HPI Details 68-year-old male with a history of hypercholesterolemia GERD and folic acid deficiency last seen in November for physical exam. Patient's colonoscopy is up-to-date. R ear pain states 5 years already , no ear discharge no fevers, no congestion but when he lays on the R ear is painful [facility] Medical History (Updated 05/18/24 @ 15:20 by Patti Faulkner MD) Recurrent major depression Cervical spinal stenosis Cataract Hypercholesterolemia GERD (gastroesophageal reflux disease) Vitamin D deficiency Surgical History H/O colonoscopy S/P debridement History of cataract surgery History of facial surgery Family History (Updated 07/12/21 @ 08:59 by Dilcia Antony) Father Stroke CVD (cardiovascular disease) Mother No problems noted. Paternal Grandfather Heart problem Paternal Grandmother No problems noted. Social History (Updated 11/18/23 @ 11:36 by Patti Faulkner MD) Housing: House Alcohol intake: never Patient Tobacco Use Status: Former Tobacco user Tobacco use type: Cigarette Years Smoked: quit 1980 smokes pot e-Cigarette/Vaping Use: Never Used Second Hand Smoke Exposure: No Substance Use Type: Marijuana service: No Current occupational status: retired and disabled Current occupation: [employer] Cognitive needs: No Hearing needs: No Vision needs: Yes Questionnaire Thrive Questionnaire Date Thrive assessed: 11/18/23 I am a: Patient What is your living situation today?: I have a steady place to live Within the past 12 months, did the food you bought not last and you didn't have the money to get more?: Never true Within the past 12 months, did you worry whether your food would run out before you got money to buy more?: Never true Do you have trouble paying for medicines?: No Do you have trouble getting transportation to medical appointments?: No Do you have trouble paying your heating and electricity bill?: No Do you have trouble taking care of your child, family member or friend?: No Do you have trouble with day-to-day activities such as bathing, preparing meals, shopping, managing finances, etc.?: No Are you currently unemployed and looking for a job?: No Are you interested in more education?: No THRIVE Score: 0 AUDIT C Alcohol Use Questionnaire (AUDIT-C) 1. How often do you have a drink containing alcohol?: Never 2. How many drinks containing alcohol do you have on a typical day when you are drinking?: 1 or 2 (0) 3. How often do you have six or more drinks on one occasion?: Never Total Score: 0 KVNG-7 AMB Questionnaire KVNG-7 Date KVNG - 7 assessed: 11/18/23 Source: Developed by Drs. Jeffery Sullivan, Melita Corrales, Mervin Tran and colleagues, with an educational pavel from [employer]. Physical exam (Primary Care) Vital Signs: Last Vital Signs Pulse 69 05/18/24 14:32 BP 110/72 05/18/24 14:32 Pulse Ox 95 05/18/24 14:32 Oxygen Delivery Method Room Air 05/18/24 14:32 BMI result Body Mass Index 23.6 Tobacco/Smoking Status: Tobacco use Status Tobacco use date assessed 11/18/23 05/18/24 14:33 Patient Tobacco Use Status Former Tobacco user 05/18/24 14:33 Tobacco use type Cigarette 05/18/24 14:33 e-Cigarette/Vaping Use Never Used 05/18/24 14:33 Thrive Assessment: Date of Thrive Assessment Date Thrive assessed 11/18/23 05/18/24 14:33 Const General: alert; No acute distress Eyes Conjunctivae: conjunctivae normal Resp Auscultation: clear to auscultation bilaterally Cardio Rate: regular rate Rhythm: regular rhythm GI Inspection: Yes normal to inspection Extrem General: Yes normal to inspection and No edema Assessment and Plan Assessment & Plan (1) Hypercholesterolemia: Code(s): E78.00 - Pure hypercholesterolemia, unspecified Plan: Avoid fried foods, chicken skin, eggs, butter margarine, pastries and meat. Be it pork or beef they have a lot of cholesterol LDL goal of less than 130 and triglyceride of less than 150 on atorvastatin 80 mg once a day. PAtient admits indiscriminate eating and knows to change- decline additional med (2) GERD (gastroesophageal reflux disease): Code(s): K21.9 - Gastro-esophageal reflux disease without esophagitis Plan: Avoid the foods that causes that usually spicy foods, tomato products, juices, coffee, soda and foods that your sensitive to. After eating do not lie down, allow 3-4 hours before in lie down. And keep the head of bed above 30 degrees to avoid the acid from going up. (3) Folic acid deficiency: Code(s): E53.8 - Deficiency of other specified B group vitamins Plan: Continue with folic acid once a day (4) Right ear pain: Code(s): H92.01 - Otalgia, right ear Plan: 2019 Ct scan showed sinus problem with treatment done but with no relief. - will refer to the ENT Orders: Orders Thyroid Stimulating Hormone 6 Months E78.00 - Pure hypercholesterolemia, unspecified Lipid Panel 6 Months E78.00 - Pure hypercholesterolemia, unspecified Prostate Specific Antigen Scr 6 Months E78.00 - Pure hypercholesterolemia, unspecified Complete Blood Count Auto Diff 6 Months E78.00 - Pure hypercholesterolemia, unspecified Comprehensive Met. Panel 6 Months E78.00 - Pure hypercholesterolemia, unspecified Free T4 (Free Thyroxine) 6 Months E78.00 - Pure hypercholesterolemia, unspecified Vitamin B12 and Folate 6 Months E78.00 - Pure hypercholesterolemia, unspecified Referrals Ear/Nose/Throat Referral H92.01 - Otalgia, right ear Coding Level of Care Code Est Pt Level 4 ([id number]) Diagnoses Hypercholesterolemia E78.00 GERD (gastroesophageal reflux disease) K21.9 Folic acid deficiency E53.8 Right ear pain H92.01
[2024-05-18 14:32] VITALS: BP 110/72; PULSE 69; O2SAT 95; BMI 23.6
== END 2024-05-18 15:27 | disposition home or self-care (01) ==
LOC: HO.HMGH 14:28
PROVIDERS: PCP Internal Medicine; Visit Provider Internal Medicine
DX: E78.00 Pure hypercholesterolemia, unspecified (principal); K21.9 Gastro-esophageal reflux disease without esophagitis; E53.8 Deficiency of other specified B group vitamins; H92.01 Otalgia, right ear
CPT/HCPCS: 99214

== ENCOUNTER 2024-12-29 09:00 | Outpatient (AMB) | payer MEDICARE, SELFPAY ==
--- NOTE | 2024-12-29 09:10 | MHC.PC.OV ---
Vital Signs 12/29/24 09:12 Height 5 ft 8 in Weight 159 lb 8 oz BMI 24.2 BP 110/72 Blood Pressure Location Lt brachial Position Sitting Pulse 76 Pulse Source Pulse Oximeter Temp 97.3 F Temp Source Temporal Artery Scan Pulse Oximetry (%) 96 Oxygen Delivery Method Room Air Intake Visit Reasons: PE Intake Note: Patient is here today for a physical. 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: No Did you have a dental problem in the last 6 months where you did not have access to dental care?: No Was dental information given to patient?: No [facility] Medical History (Updated 05/18/24 @ 15:20 by Patti Faulkner MD) Recurrent major depression Cervical spinal stenosis Cataract Hypercholesterolemia GERD (gastroesophageal reflux disease) Vitamin D deficiency Surgical History H/O colonoscopy S/P debridement History of cataract surgery History of facial surgery Family History Father Stroke CVD (cardiovascular disease) Mother No problems noted. Paternal Grandfather Heart problem Paternal Grandmother No problems noted. Social History Housing: House Alcohol intake: never Patient Tobacco Use Status: Former Tobacco user Tobacco use type: Cigarette Years Smoked: quit 1980 smokes pot e-Cigarette/Vaping Use: Never Used Second Hand Smoke Exposure: Yes Substance Use Type: Marijuana service: No Current occupational status: retired and disabled Current occupation: [employer] Cognitive needs: No Hearing needs: No Vision needs: Yes (Glasses) Questionnaire PHQ-9 Over the last 2 weeks, how often have you been bothered by any of the following problems? 1. Little interest or pleasure in doing things: not at all 2. Feeling down, depressed, or hopeless: not at all 3. Trouble falling or staying asleep, or sleeping too much: not at all 4. Feeling tired or having little energy: not at all 5. Poor appetite or overeating: not at all 6. Feeling bad about yourself - or that you are a failure or have let yourself or your family down: not at all 7. Trouble concentrating on things, such as reading the newspaper or watching television: not at all 8. Moving or speaking so slowly that other people could have noticed. Or the opposite - being so fidgety or restless that you have been moving around a lot more than usual: not at all 9. Thoughts that you would be better off or of hurting yourself in some way: not at all Total score: 0 Depression Screening Interpretation: Negative Depression Screening Done: Yes Source: Developed by Drs. Jeffery Sullivan, Melita Corrales, Mervin Tran and colleagues, with an educational pavel from [employer]. Thrive Questionnaire Date Thrive assessed: 12/29/24 I am a: Patient What is your living situation today?: I have a steady place to live Within the past 12 months, did the food you bought not last and you didn't have the money to get more?: Never true Within the past 12 months, did you worry whether your food would run out before you got money to buy more?: Never true Do you have trouble paying for medicines?: No Do you have trouble getting transportation to medical appointments?: No Do you have trouble paying your heating and electricity bill?: No Do you have trouble taking care of your child, family member or friend?: No Do you have trouble with day-to-day activities such as bathing, preparing meals, shopping, managing finances, etc.?: No Are you currently unemployed and looking for a job?: Yes Are you interested in more education?: No Please select the resources that you would like help with: None Currently or been in a relationship where the following occur: No concerns reported THRIVE Score: 0 AUDIT C Alcohol Use Questionnaire (AUDIT-C) 1. How often do you have a drink containing alcohol?: Never Total Score: 0 KVNG-7 AMB Questionnaire KVNG-7 Date KVNG - 7 assessed: 12/29/24 Feeling nervous, anxious, or on edge: 0 = Not at all Not being able to stop or control worryin = Not at all Worrying too much about different things: 0 = Not at all Trouble relaxin = Not at all Being so restless that it is hard to sit still: 0 = Not at all Becoming easily annoyed or irritable: 0 = Not at all Feeling afraid as if something awful might happen: 0 = Not at all Total KVNG-7 score (0-4 normal; 5-9 mild; 10-14 moderate; 15-21 severe): 0 Source: Developed by Drs. Jeffery Sullivan, Melita Corrales, Mervin Tran and colleagues, with an educational pavel from [employer]. Review of Systems Const Denies poor appetite and Denies weakness Eyes Denies no additional complaints ENT Reports Normal hearing present, Denies dizziness, Denies nasal congestion, Denies tinnitus and Denies sore throat Card Denies chest pain, Denies syncope, Denies rapid heart rate and Denies dyspnea Resp Denies cough and Denies dyspnea GI Denies change in stool character, Reports constipation, Denies diarrhea, Denies nausea and Denies vomiting Denies dysuria and Denies urinary frequency Neuro Reports Normal hearing present, Denies confusion, Denies dizziness, Denies syncope and Denies weakness Psych Denies confusion Physical exam (Primary Care) Vital Signs: Last Vital Signs Temp 97.3 F 12/29/24 09:12 Pulse 76 12/29/24 09:12 BP 110/72 12/29/24 09:12 Pulse Ox 96 12/29/24 09:12 Oxygen Delivery Method Room Air 12/29/24 09:12 BMI result Body Mass Index 24.2 Tobacco/Smoking Status: Tobacco use Status Tobacco use date assessed 12/29/24 12/29/24 09:16 Patient Tobacco Use Status Former Tobacco user 12/29/24 09:10 Tobacco use type Cigarette 12/29/24 09:10 e-Cigarette/Vaping Use Never Used 12/29/24 09:10 PHQ-9: PHQ-9 Score PHQ-9: Total score 0 12/29/24 10:02 Depression Screening Interpretation: Negative Thrive Assessment: Date of Thrive Assessment Date Thrive assessed 12/29/24 12/29/24 09:16 Currently or been in a relationship where the following occur: No concerns reported Const General: No confusion Orientation/consciousness: No confusion HENMT Head: Yes normocephalic Ears: external ears normal and TM's normal bilaterally Face and sinus: Yes normal facial exam Mouth: moist mucous membranes Throat: Yes tonsils normal Eyes Conjunctivae: conjunctivae normal Pupils: Equal, round and reactive pupils present and Pupil accommodation reflex normal Direct Ophthalmoscopy: normal light reflex Neck Neck: No lymphadenopathy Thyroid: Thyroid normal Chest Chest palpation & inspection: normal inspection of the chest Resp Effort & Inspection: normal respiratory effort and no audible wheezes Auscultation: clear to auscultation bilaterally, no crackles, no wheezes and lung sounds not diminished Cardio Rate: regular rate Rhythm: regular rhythm Peripheral pulses: radial pulses present and dorsalis pedis present GI Palpation (GI): no masses Auscultation: normal bowel sounds and normoactive bowel sounds Rectal Exam - Male: Yes deferred Skin General skin exam: no rashes or lesions noted Rashes: no rashes Neuro General: No confusion Cranial nerves: Yes Equal, round and reactive pupils present and Yes Normal hearing present Cognition (Neuro): normal cognition Gait exam (Neuro): Normal gait present Motor exam (neuro): 5/5 motor strength present throughout Deep tendon reflexes (DTR's): Right brachioradialis reflex intensity grade: 2+, Left brachioradialis reflex intensity grade: 2+, Right patellar reflex intensity grade: 2+ and Left patellar reflex intensity grade: 2+ Extrem General: No edema Immunizations pneumoc 20-dale conj-dip cr(PF) 0.5 mL IM syringe Performing Provider: Patti Faulkner MD [facility] [place] [facility] Administered by: KEYSHAWN De Luna on 12/29/24 10:02 Dose Route Admin Location Dispensed Lot Number Expiration Date [facility] Supervisor [employer] 0.5 mL IM Left Deltoid 0.5 mL [id number] 02/02/26 8910-1489-65 [employer] VIS Given Date VIS Provided VIS Publication Date 12/29/24 Single Vaccine 21 Eligibility Eligibility Date Funding Source Not [facility] Eligible 12/29/24 Private Coding Level of Care Code Est Pt Prev Care >65y(98844) Diagnoses Annual physical exam Z00.00 GERD (gastroesophageal reflux disease) K21.9 Hypercholesterolemia E78.00 Assessment & Plan Assessment & Plan (1) Annual physical exam: Code(s): Z00.00 - Encounter for general adult medical examination without abnormal findings Category: Medical Plan: Patient is advised to eat healthy, keep well hydrated, keep active and have adequate sleep. (2) GERD (gastroesophageal reflux disease): Code(s): K21.9 - Gastro-esophageal reflux disease without esophagitis Category: Medical Plan: Avoid the foods that causes that usually spicy foods, tomato products, juices, coffee, soda and foods that your sensitive to. After eating do not lie down, allow 3-4 hours before in lie down. And keep the head of bed above 30 degrees to avoid the acid from going up. (3) Hypercholesterolemia: Code(s): E78.00 - Pure hypercholesterolemia, unspecified Category: Medical Plan: Avoid fried foods, chicken skin, eggs, butter margarine, pastries and meat. Be it pork or beef they have a lot of cholesterol LDL goal of less than 130 and triglyceride of less than 150 Plan History of Present Illness The patient is a 69-year-old male presenting for a physical exam and wellness evaluation. He has a history of hypercholesterolemia and is being monitored with a goal of LDL cholesterol below 130 mg/dL and triglycerides below 150 mg/dL. Blood work in November and March 2024 showed elevated cholesterol levels. He is on atorvastatin, aspirin, and supplements for vitamin D and folic acid deficiency. The patient denies any new diagnoses or significant medical events since the last exam in May 2024. He reports neck pain for which he is taking meloxicam. The patient quit smoking tobacco 30-40 years ago but currently uses cannabis. He reports no recent dizziness, chest pain, nausea, vomiting, or problems with swallowing, hearing, or bowel movements. He occasionally experiences mild, transient anterior chest pain. Health Maintenance - Colonoscopy up to date (2021) - Blood work completed in November and March 2024 with attention given to cholesterol levels - Flu shot received in July - Pneumonia vaccine recommended today (second shot needed post-2018) - Shingles vaccine discussed but not administered - Tetanus immunization up to date - Advised to maintain active lifestyle and exercise regularly despite winter conditions - Advised of cannabis use risks, particularly for cardiovascular health Social History - History of tobacco use; quit 30-40 years ago - Active cannabis use (legal in jurisdiction) - Exercises by walking, though not active recently due to weather - Functional independence described in home setting (stairs, no difficulty performing daily activities) Review of Systems - General: Denies fever, malaise - Cardiovascular: Denies recent chest pain, palpitations, dyspnea - Respiratory: Denies wheezing, cough - Gastrointestinal: Denies dysphagia, heartburn, altered bowel habits - Genitourinary: Denies dysuria, frequency beyond nocturia (once per night) - Neurological: Denies syncope, dizziness - Musculoskeletal: Reports neck pain Physical Exam General: Cooperative, healthy appearing, comfortable, no acute distress and well developed Orientation: Patient oriented x3 Limitations: No limitations Head: Normal to inspection Ears: Hearing grossly normal bilaterally Nose: Normal external nose present Face and sinus: Normal facial exam Eyes: Appearance normal, both eyes and all related structures Neck: Normal visual inspection and Yes full ROM Respiratory: Normal respiratory effort and able to speak in complete sentences. Clear to auscultation bilaterally Cardiovascular: Regular rate and rhythm. Normal S1 and S2 GI: Normal to inspection. 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 Discussion Notes During the visit, I discussed with the patient the current management of hypercholesterolemia, folic acid and B12 deficiency, and his use of meloxicam for neck pain. The importance of maintaining cholesterol levels within target parameters was reinforced, and we reviewed the patient's blood work results. I recommended and obtained consent for the pneumococcal vaccination. Potential cardiovascular risks associated with cannabis smoking, as opposed to edibles, were discussed. The patient expressed understanding and agreement with the proposed plan of care, including maintaining an active lifestyle and preparing for fasting blood work. Future preventative measures, such as the Shingles vaccine, were also reviewed. Patient Instructions - Continue taking atorvastatin and aspirin as prescribed. - Take meloxicam for neck pain as needed. - Fast for 8 hours before upcoming blood work; only water allowed. - Resume regular exercise and walking as weather permits. - Maintain a heart-healthy diet. - Monitor for new or worsening symptoms, and follow up as needed. - Receive the pneumonia vaccine today. - Avoid using tobacco and consider health risks associated with cannabis smoking. Orders: Orders Pneumococcal 20 Immunization Today Z23 - Encounter for immunization Medications: Refilled folic acid 1 mg PO DAILY 30 tabs 3RF B35.6 - Tinea cruris folic acid 1 mg PO DAILY 90 tabs 3RF B35.6 - Tinea cruris
[2024-12-29 09:12] VITALS: BP 110/72; PULSE 76; TEMP 36.3; O2SAT 96; BMI 24.2
--- OUTSIDE RECORDS SUMMARY | 2024-12-29 09:45 | XMS_ITS | Patient Health Record ---
Author Organization [facility] Address [address] [place] [address] Care Team Providers Care Correspondence School Instructor Name Role Phone Patti Faulkner MD Primary Care Provider Jeffery Hartman [phone] ALLERGIES No Known Allergies REASON FOR REFERRAL No Information MEDICATIONS Medication SIG (Take, Route, Frequency, Duration) Notes Start Date End Date Status Atorvastatin Calcium 80 MG Oral for 90 Active Aspirin 81 81 MG 1 tablet Orally Once a day for 30 day(s) Active Vitamin D 25 MCG (1000 UT) 1 tablet Oral ly Once a day for 30 day(s) Active IMMUNIZATIONS Vaccine Route Administration Date Status Comme nts Influenza Unknown 05/22/2022 Refused SOCIAL HISTORY Tobacco Use: Social History Observation Description Date Details (start date - stop date) Former Smoker NA - NA Sex Assigned At : Social History Observation Description Sex Assigned At Unknown Tobacco Use/Smoking Question Answer Notes Patient is a former smoker How long has it been since you last smoked? > 10 years Alcohol Screen Question Answer Notes Did you have a drink containing alcohol in the p ast year? No Points 0 Interpretation Negative PROBLEMS Problem Type ICD Code Onset Dates Problem Status W/U Status Risk SNOMED Code Notes Problem Encounter for screening for malignant neoplasm of colon (Z12.11) Active confirmed Screening for malignant neoplasm of colon (794964919) Problem Personal history of colonic polyps (Z86.010) Active confirmed History of poly p of colon (situation) (397747571) Problem Encounter for other preprocedural examination (Z01.818) Active confirmed Pre-procedure evaluation check (442945957) Problem Diverticulosis of sigmoid colon (K57.30) Active confirmed Diverticulosis of sigmoid colon (213594225) Problem Diverticulosis of colon (K57.30) Active confirmed Diverticulosi s of colon (990276594) Problem Encounter for long-term (current) aspirin use (Z79.82) Active confirmed Long-term curre nt use of antiplatelet drug (809107495464491) PLAN OF TREATMENT Future Test Test Name Order Date COLONOSCOPY 05/22/2022 Insurance Providers Payer Name Payer Address Payer Phone Subscriber Number Group Number Insured Name Patient Relationship to Insured Coverage Start Date Coverage End Date [employer] Medicare Advantage Plan [address] [address] [place] [id number] [facility] Self - patient is the insured MEDICAL (GENERAL) HISTORY Medical History History ICD Code Denies MS,DM,CVA,Lung disease,renal dise ase Elevated Cholesterol Cervical spine stenosis Reports a negative colonoscopy in his ea rly 50's Surgical History Surgery Date(Month/Year) ELBOW SURGERY LEFT
== END 2024-12-29 10:01 | disposition home or self-care (01) ==
PROVIDERS: PCP Internal Medicine; Visit Provider Internal Medicine
DX: Z00.00 Encounter for general adult medical examination without abnormal findings (principal); K21.9 Gastro-esophageal reflux disease without esophagitis; E78.00 Pure hypercholesterolemia, unspecified; Z23 Encounter for immunization

== ENCOUNTER → 2024-12-29 09:00 | Outpatient (BNVA) | payer MEDICARE, SELFPAY | PROVIDERS: PCP Internal Medicine; Visit Provider Internal Medicine | DX: Z00.00 Encounter for general adult medical examination without abnormal findings (principal); Z23 Encounter for immunization; K21.9 Gastro-esophageal reflux disease without esophagitis; E78.00 Pure hypercholesterolemia, unspecified | CPT/HCPCS: 90471; 90677; 99397 ==

== ENCOUNTER 2025-03-31 06:48 | Outpatient (REF) | payer MEDICARE, SELFPAY ==
--- OUTSIDE RECORDS SUMMARY | 2025-03-31 06:51 | XMS_ITS | Patient Health Record ---
Author Organization [facility] Address [address] [place] [address] Care Team Providers Care Foam Tank Laminator Name Role Phone Patti Faulkner MD Primary Care Provider Jeffery Hartman [phone] Allergies No Known Allergies Reason For Referral No Information Medications Medication SIG (Take, Route, Frequency, Duration) Notes Start Date End Date Status Atorvastatin Calcium 80 MG Oral for 90 Active Aspirin 81 81 MG 1 tablet Orally Once a day for 30 day(s) Active Vitamin D 25 MCG (1000 UT) 1 tablet Oral ly Once a day for 30 day(s) Active Immunizations Vaccine Route Administration Date Status Comme nts Influenza Unknown 05/22/2022 Refused Social History Tobacco Use: Social History Observation Description Date Details (start date - stop date) Former Smoker NA - NA Tobacco Use/Smoking Question Answer Notes Patient is a former smoker How long has it been since you last smoked? > 10 years Alcohol Screen Question Answer Notes Did you have a drink containing alcohol in the p ast year? No Points 0 Interpretation Negative Section Notes: Nonsmoker of cigs; smokes nadia freeman daily; denies sig. EtOH > 17 years--heavy before that Problems Problem Type SNOMED Code ICD Code Onset Dates Problem Status W/U Status Risk Notes Problem Screening for malignant neoplasm of colon (609299271) Encounter for screening for malignant neoplasm of colon (Z12.11) Active confirmed Problem History of polyp of colon (situation) (191922574) Personal history of colonic polyps (Z86.010) Active confirmed Problem Pre-procedure evaluation check (261576580) Encounter for other preprocedural examination (Z01.818) Active confirmed Problem Diverticulosis of sigmoid colon (855253339) Diverticulosis of sigmoid colon (K57.30) Active confirmed Problem Diverticulosis of colon (162941728) Diverticulosis of colon (K57.30) Active confirmed Problem Long-term current use of antiplatelet drug (260843427772081) Encounter for long-term (current) aspirin use (Z79.82) Active confirmed Plan Of Treatment Future Test Test Name Order Date COLONOSCOPY 05/22/2022 Insurance Providers Payer Name Payer Address Payer Phone Subscriber Number Group Number Insured Name Patient Relationship to Insured Coverage Start Date Coverage End Date [facility] Medicare Advantage Plan [address] [address] [place] [address] [id number] [facility] Self - patient is the insured Medical (General) History Medical History History ICD Code Denies [place],DM,CVA,Lung disease,renal dise ase Elevated Cholesterol Cervical spine stenosis Reports a negative colonoscopy in his ea rly 50's Surgical History Surgery Date(Month/Year) ELBOW SURGERY LEFT
[2025-03-31 06:59] LABS: MANUAL DIFF FLAG NO
[2025-03-31 07:22] LABS: Basophils Absolute Auto 0.1 X10*3/uL (0.0-0.2); Basophils Percent Auto 0.9 % (0-2); Eosinophils Absolute Auto 0.1 X10*3/uL (0.0-0.4); Eosinophils Percent Auto 1.4 % (0-4); Hematocrit 43.5 % (42.0-52.0); Hemoglobin 15.1 g/dl (14.0-18.0); Imm Gran Abs Auto 0.01 X10*3/uL (0.00-0.03); Imm Gran Pct Auto 0.2 % (0.0-0.4); Lymphocytes Absolute Auto 1.5 X10*3/uL (1.2-4.9); Lymphocytes Percent Auto 25.3 % (20-40); Mean Corpuscular HGB Conc 34.7 g/dl (31.0-36.0); Mean Corpuscular Hemoglobin 31.3 pg (27.0-33.0); Mean Corpuscular Volume 90.1 fL (80.0-98.0); Mean Platelet Volume 9.5 fL (9.4-12.4); Monocytes Absolute Auto 0.4 X10*3/uL (0.1-1.2); Monocytes Percent Auto 7.7 % (2-11); Neutrophils Absolute Auto 3.7 x10*3/uL (2.0-8.3); Neutrophils Percent Auto 64.5 % (45-73); Platelet Count 174 X10*3/uL (160-400); Red Blood Count 4.83 X10*6/uL (4.60-5.80); Red Cell Distribution Width 13.9 % (11.0-16.0); White Blood Count 5.7 X10*3/uL (4.8-10.8)
[2025-03-31 07:56] LABS: Alanine Aminotransferase 28 U/L (0-40); Albumin Level 4.3 g/dL (3.5-5.0); Alkaline Phosphatase 107 U/L (39-117); Anion Gap 9 (12-20); Aspartate Amino Transferase 32 U/L (5-37); Blood Urea Nitrogen 8 mg/dL (9-16); Carbon Dioxide 25 mmol/L (22-29); Chloride 112 mmol/L (96-108); Cholesterol 198 mg/dL (<200); Estimated Glomerular Filt Rate > 60; Glucose Random 90 mg/dL (60-115); HDL Cholesterol 34 mg/dL (>40); LDL Cholesterol Calculated 140 mg/dL (<100); Potassium 4.1 mmol/L (3.3-5.1); Sodium 142 mmol/L (135-145); Total Protein 6.5 g/dL (6.5-8.0); Triglycerides 122 mg/dL (<150)
[2025-03-31 08:16] LABS: Free T4 (Free Thyroxine) 0.79 ng/dL (0.71-1.85); Thyroid Stimulating Hormone 1.82 uIU/mL (0.32-4.0)
[2025-03-31 08:24] LABS: Folate 8.6 ng/mL (> or = 4.0); Prostate Specific Antigen Scr 3.63 ng/mL (<0.05-4.0); Vitamin B12 386 pg/mL (200-900)
== END 2025-03-31 06:49 | disposition home or self-care (01) ==
LOC: HO.LAB 06:48
PROVIDERS: PCP Internal Medicine; Visit Provider Internal Medicine
DX: E78.00 Pure hypercholesterolemia, unspecified (principal); Z12.5 Encounter for screening for malignant neoplasm of prostate
CPT/HCPCS: 36415; 80053; 80061; 82607; 82746; 84153; 84439; 84443; 85025

== ENCOUNTER 2025-04-07 10:55 | Outpatient (AMB) | payer MEDICARE, SELFPAY ==
--- NOTE | 2025-04-07 11:05 | MHC.PC.OV ---
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 Required: No Accompanied by: Self / Same As Patient Allergies No Known Allergies [No Known Allergies*] Allergy (Verified 04/07/25 11:35) Medication List - Last Reconciled 04/07/25 by Oralia Pacheco PA-C aspirin 81 mg PO DAILY atorvastatin 80 mg PO DAILY 90 days cholecalciferol (vitamin D3) 25 mcg PO DAILY clotrimazole 1% 1 appl topical BID 4 weeks folic acid 1 mg PO DAILY meloxicam 15 mg PO DAILY PRN Tobacco use date assessed: 04/07/25 Fall risk assessment: No Falls in past year Last assessed Fall Risk: 04/07/25 Dental Screening Dental Screen Date: 04/07/25 Did you have a dental visit in the last 12 months?: No Did you have a dental problem in the last 6 months where you did not have access to dental care?: No Was dental information given to patient?: No HPI 3 months HPI Details 69 year old male with past history of GERD and hypercholesterolemia last seen by Dr. Faulkner 12/2024 coming in for follow up. Patient has no acute concerns or questions today. The patient reports elevated LDL levels since the age of 20, suggesting genetic components in lipid metabolism. Recent LDL-C levels show a minor improvement to 140 mg/dL while on a significant dose of atorvastatin. The patient reports no personal history of coronary events but acknowledges a familial predisposition to cardiovascular ailments. Dietary habits include moderate consumption of meats with some reduction advised, alongside avoidance of excessive fried foods. [facility] Medical History Recurrent major depression Cervical spinal stenosis Cataract Hypercholesterolemia GERD (gastroesophageal reflux disease) Vitamin D deficiency Surgical History H/O colonoscopy S/P debridement History of cataract surgery History of facial surgery Family History Father Stroke CVD (cardiovascular disease) Mother No problems noted. Paternal Grandfather Heart problem Paternal Grandmother No problems noted. Social History Housing: House Alcohol intake: never Patient Tobacco Use Status: Former Tobacco user Tobacco use type: Cigarette Years Smoked: quit 1980 smokes pot e-Cigarette/Vaping Use: Never Used Second Hand Smoke Exposure: Yes Substance Use Type: Marijuana service: No Current occupational status: retired and disabled Current occupation: [employer] Cognitive needs: No Hearing needs: No Vision needs: Yes (Glasses) Questionnaire PHQ-9 Over the last 2 weeks, how often have you been bothered by any of the following problems? 1. Little interest or pleasure in doing things: not at all 2. Feeling down, depressed, or hopeless: not at all 3. Trouble falling or staying asleep, or sleeping too much: not at all 4. Feeling tired or having little energy: not at all 5. Poor appetite or overeating: not at all 6. Feeling bad about yourself - or that you are a failure or have let yourself or your family down: not at all 7. Trouble concentrating on things, such as reading the newspaper or watching television: not at all 8. Moving or speaking so slowly that other people could have noticed. Or the opposite - being so fidgety or restless that you have been moving around a lot more than usual: not at all 9. Thoughts that you would be better off or of hurting yourself in some way: not at all Total score: 0 Depression Screening Interpretation: Negative Depression Screening Done: Yes Source: Developed by Drs. Jeffery Sullivan, Melita Corrales, Mervin Tran and colleagues, with an educational pavel from [employer]. Thrive Questionnaire Date Thrive assessed: 04/07/25 I am a: Patient What is your living situation today?: I have a steady place to live Within the past 12 months, did the food you bought not last and you didn't have the money to get more?: Never true Within the past 12 months, did you worry whether your food would run out before you got money to buy more?: Never true Do you have trouble paying for medicines?: No Do you have trouble getting transportation to medical appointments?: No Do you have trouble paying your heating and electricity bill?: No Do you have trouble taking care of your child, family member or friend?: No Do you have trouble with day-to-day activities such as bathing, preparing meals, shopping, managing finances, etc.?: No Are you currently unemployed and looking for a job?: Yes Are you interested in more education?: No Please select the resources that you would like help with: None Currently or been in a relationship where the following occur: No concerns reported THRIVE Score: 0 AUDIT C Alcohol Use Questionnaire (AUDIT-C) 1. How often do you have a drink containing alcohol?: Never Total Score: 0 KVNG-7 AMB Questionnaire KVNG-7 Date KVNG - 7 assessed: 04/07/25 Feeling nervous, anxious, or on edge: 0 = Not at all Not being able to stop or control worryin = Not at all Worrying too much about different things: 0 = Not at all Trouble relaxin = Not at all Being so restless that it is hard to sit still: 0 = Not at all Becoming easily annoyed or irritable: 0 = Not at all Feeling afraid as if something awful might happen: 0 = Not at all Total KVNG-7 score (0-4 normal; 5-9 mild; 10-14 moderate; 15-21 severe): 0 Source: Developed by Drs. Jeffery Sullivan, Melita Corrales, Mervin Tran and colleagues, with an educational pavel from [employer]. Review of Systems Const Denies headache(s) and Denies poor appetite Eyes Reports no additional complaints ENT Denies dizziness and Denies headache(s) Card Denies chest pain, Denies lightheadedness and Denies dyspnea Resp Denies cough and Denies dyspnea GI Denies nausea and Denies vomiting Reports no additional complaints Skin/Breast Reports system reviewed and no additional complaints, except as documented Neuro Denies dizziness and Denies headache(s) Psych Reports no additional complaints Physical exam (Primary Care) Vital Signs: Oxygen Delivery Method Room Air 04/07/25 11:06 Tobacco/Smoking Status: Tobacco use Status Tobacco use date assessed 12/29/24 12/29/24 09:16 Patient Tobacco Use Status Former Tobacco user 12/29/24 09:10 Tobacco use type Cigarette 12/29/24 09:10 e-Cigarette/Vaping Use Never Used 12/29/24 09:10 Depression Screening Interpretation: Negative Thrive Assessment: Date of Thrive Assessment Date Thrive assessed 12/29/24 12/29/24 09:16 Currently or been in a relationship where the following occur: No concerns reported Const General: cooperative, healthy appearing, comfortable and no acute distress Orientation/consciousness: patient oriented x3 HENMT Head: Yes normocephalic Ears: hearing grossly normal bilaterally General nose exam: Normal external nose present Eyes General: appearance normal, both eyes and all related structures Conjunctivae: conjunctivae normal Neck Neck: Yes full ROM and Yes no lymphadenopathy Resp Effort & Inspection: normal respiratory effort Auscultation: clear to auscultation bilaterally, no crackles, no rales, no rhonchi and no wheezes Cardio Rate: regular rate Rhythm: regular rhythm Skin General skin exam: no rashes or lesions noted Neuro General: patient oriented x3 Gait exam (Neuro): Normal gait present Extrem General: Yes normal to inspection, Yes full ROM and No edema Psych Affect: normal affect Attitude: cooperative Insight: Good insight present (Psych) Judgement: Good judgement present (Psych) Coding Level of Care Code Est Pt Level 3 (37609) Diagnoses Hypercholesterolemia E78.00 GERD (gastroesophageal reflux disease) K21.9 Assessment & Plan Assessment & Plan (1) Hypercholesterolemia: Code(s): E78.00 - Pure hypercholesterolemia, unspecified Category: Medical Plan: Avoid foods that are high in cholesterol such as red meat, fried foods, eggs and baked goods. Triglyceride goal of less than 150 and LDL goal of less than 130. Continue on Atorvastatin 80. Has a patient LDL at 140 not ideal. He would like to continue to work on dietary and lifestyle modification at this time. Discussed the risk of elevated cholesterol over time. Plan to follow up in 6 months with repeat cholesterol at that time. (2) GERD (gastroesophageal reflux disease): Code(s): K21.9 - Gastro-esophageal reflux disease without esophagitis Category: Medical Plan: Avoid trigger foods such as citrus, tomato products, soda, caffeine, spicy foods and other foods that may be irritating to your stomach. Avoid laying flat 3-4 hours after eating and elevate the head of the bed 30 degrees to prevent acid from moving into the esophagus. Plan Continuing with the high-dose atorvastatin appears appropriate for managing the patient's hyperlipidemia, as evidenced by a slight reduction in LDL levels. The patient?s familial cardiovascular risk was discussed, emphasizing dietary changes to decrease red meat and butter. Cholesterol levels will be reassessed in six months to evaluate the efficacy of current medications and dietary modifications. The patient was advised to maintain regular exercise and was given educational resources on diet management. The dietary adjustments and pharmacological approach align with the aim of achieving optimal cholesterol control in the context of a significant familial history of cardiovascular conditions. This note was constructed using voice recognition software. While every effort has been made to ensure accuracy and medical aides teacher, still areas may have been included sometimes these areas may affect the content or meeting of the given symptoms. Total time spent caring for the patient today was 20 minutes. This includes time spent before the visit reviewing the chart, time spent during the visit, and time spent after the visit and documentation. Patient was informed and verbally consented to the use of an ambient scribe for clinic note documentation during this visit. Orders: Orders Lipid Panel 6 Months E78.00 - Pure hypercholesterolemia, unspecified
[2025-04-07 11:06] VITALS: BP 86/52; PULSE 63; O2SAT 96; BMI 23.6
[2025-04-07 11:34] VITALS: BP 100/62
--- OUTSIDE RECORDS SUMMARY | 2025-04-07 11:58 | XMS_ITS | Patient Health Record ---
Author Organization [facility] Address [address] [place] [address] Care Team Providers Care Counter Pocket Trimmer Name Role Phone Patti Faulkner MD Primary Care Provider Jeffery Hartman [phone] Allergies No Known Allergies Reason For Referral [...] Problem Screening for malignant neoplasm of colon (651158422) Encounter for screening for malignant neoplasm of colon (Z12.11) Active confirmed Problem History of polyp of colon (situation) (863383652) Personal history of colonic polyps (Z86.010) Active confirmed Problem Pre-procedure evaluation check (613048023) Encounter for other preprocedural examination (Z01.818) Active confirmed Problem Diverticulosis of sigmoid colon (941143177) Diverticulosis of sigmoid colon (K57.30) Active confirmed Problem Diverticulosis of colon (998774820) Diverticulosis of colon (K57.30) Active confirmed Problem Long-term current use of antiplatelet drug ([id number]) Encounter for long-term (current) aspirin use (Z79.82) Active confirmed Plan Of Treatment Future Test Test Name Order Date COLONOSCOPY 05/22/2022 Insurance Providers Payer Name Payer Address Payer Phone Subscriber Number Group Number Insured Name Patient Relationship to Insured Coverage Start Date Coverage End Date [facility] Medicare Advantage Plan [address] [address] [place] [id number] [facility] Self - patient is the insured Medical (General) History Medical History History ICD Code Denies [place],DM,CVA,Lung disease,renal dise ase Elevated Cholesterol Cervical spine stenosis Reports a negative colonoscopy in his ea rly 50's Surgical History Surgery Date(Month/Year) ELBOW SURGERY LEFT
== END 2025-04-07 11:41 | disposition home or self-care (01) ==
LOC: HO.HMCH 11:04
PROVIDERS: PCP Internal Medicine
DX: E78.00 Pure hypercholesterolemia, unspecified (principal); K21.9 Gastro-esophageal reflux disease without esophagitis

== ENCOUNTER → 2025-04-07 10:55 | Outpatient (BNVA) | payer MEDICARE, SELFPAY | PROVIDERS: PCP Internal Medicine | DX: K21.9 Gastro-esophageal reflux disease without esophagitis (principal); E78.00 Pure hypercholesterolemia, unspecified | CPT/HCPCS: 96127; 99212 ==